=== PATIENT | female | born 1980 | race African-American/Black ===

== ENCOUNTER 2018-07-13 19:29 | Emergency (ER) | payer SELFPAY ==
[~2018-07-13] VITALS: Ht 165.1 cm; Wt 92.7 kg
[2018-07-13 19:57] VITALS: Ht 165.1 cm; Wt 92.7 kg
[2018-07-13 20:53] VITALS: BP 140/43
== END 2018-07-13 20:53 | disposition home or self-care (01) ==
LOC: ED 19:29
DX: O26.891 Other specified pregnancy related conditions, first trimester (principal); Z33.1 Pregnant state, incidental; Z3A.01 Less than 8 weeks gestation of pregnancy

== ENCOUNTER 2018-09-13 16:38 | Emergency (ER) | payer MEDICAID ==
[~2018-09-13] VITALS: Ht 177.8 cm; Wt 93.7 kg
[2018-09-13 16:45] VITALS: BP 112/74; Ht 177.8 cm; Wt 93.7 kg
== END 2018-09-13 18:28 | disposition home or self-care (01) ==
LOC: ED 16:38
DX: O26.891 Other specified pregnancy related conditions, first trimester (principal); R10.2 Pelvic and perineal pain; R14.0 Abdominal distension (gaseous); Z3A.13 13 weeks gestation of pregnancy